=== PATIENT | male | born 1940 | race African-American/Black ===

== ENCOUNTER 2021-08-25 15:53 | Emergency (ER) | payer MEDICARE, MEDICAID ==
[~2021-08-25] VITALS: Ht 180.3 cm; Wt 60.0 kg
[2021-08-25 17:49] LABS: BASOPHILS % 1.5 % (0.0-2.0); EOSINOPHILS % 0.6 % (0.0-5.0); HEMOGLOBIN. 12.5 g/dL (14.0-18.0); LYMPHOCYTES % 42.9 % (20.0-50.0); MEAN CORPUSCULAR HEMOGLOBIN 30.3 pg (28.0-32.0); MEAN CORPUSCULAR VOLUME 89.9 fL (80.0-94.0); MEAN PLATELET VOLUME 7.7 fl (7.4-10.4); MONOCYTES % 14.2 % (2.0-8.0); NEUTROPHILS % 40.8 % (40.0-76.0); PLATELET 197 x1000/uL (130-400); RED BLOOD CELL COUNT 4.12 mill/uL (4.7-6.1)
[2021-08-25 17:53] LABS: CHLORIDE 107 mEq/L (98-107)
[2021-08-25 20:00] VITALS: BP 171/82
[2021-08-25 20:24] LABS: CLARITY URINE CLEAR (CLEAR); COLOR URINE YELLOW (YELLOW); KETONES URINE NEGATIVE (NEGATIVE); LEUKOCYTE ESTERASE URINE NEGATIVE (NEGATIVE); NITRITE URINE NEGATIVE (NEGATIVE); OCCULT BLOOD URINE NEGATIVE (NEGATIVE); PH URINE 5.5 (4.5-8.0); PROTEIN URINE NEGATIVE (NEGATIVE); SPECIFIC GRAVITY URINE 1.016 (1.005-1.030); UROBILINOGEN URINE 0.2 E.U./dL (0.2-1.0)
== END 2021-08-25 21:19 | disposition home or self-care (01) ==
LOC: ER 15:53
DX: R53.1 Weakness (principal); R42 Dizziness and giddiness; H54.7 Unspecified visual loss; Z91.81 History of falling
CPT/HCPCS: 36415; 71045; 80053; 81003; 82962; 85025; 93005; 99285

== ENCOUNTER 2021-12-31 01:55 | Inpatient (IN) | payer MEDICARE, MEDICAID ==
[~2021-12-31] VITALS: Ht 180.3 cm; Wt 59.0 kg
[2021-12-31] MEDS ORDERED: ACETAMINOPHEN 325MG TABLET PO STA (02:57)
[2021-12-31] MEDS ORDERED: CEFTRIAXONE 1 G PREMIX 50 ML IV NR (03:00)
[2021-12-31] MEDS ORDERED: SODIUM CHLORIDE 0.9% 1,000 ML IV ONE (03:00)
[2021-12-31 03:45] LABS: CLARITY URINE CLEAR (CLEAR); COLOR URINE YELLOW (YELLOW); KETONES URINE 1+ (NEGATIVE); LEUKOCYTE ESTERASE URINE NEGATIVE (NEGATIVE); NITRITE URINE NEGATIVE (NEGATIVE); OCCULT BLOOD URINE TRACE (NEGATIVE); PROTEIN URINE 1+ (NEGATIVE); SPECIFIC GRAVITY URINE 1.021 (1.005-1.030)
[2021-12-31] MEDS ORDERED: ENALAPRIL 2.5MG/2ML VIAL 2ML IV ONE (03:45)
[2021-12-31] MEDS ORDERED: ENALAPRIL 1.25MG/ML VIAL 1ML IV NR (03:45)
[2021-12-31 03:53] LABS: CHLORIDE 97 mEq/L (98-107); HEMATOCRIT. 40.1 % (42.0-52.0); HEMOGLOBIN. 13.7 g/dL (14.0-18.0); MEAN CORPUSCULAR HEMOGLOBIN 30.8 pg (28.0-32.0); MEAN CORPUSCULAR VOLUME 90.2 fL (80.0-94.0); MEAN PLATELET VOLUME 7.3 fl (7.4-10.4); PLATELET 223 x1000/uL (130-400); RED BLOOD CELL COUNT 4.45 mill/uL (4.7-6.1); RED CELL DISTRIBUTION WIDTH 14.1 % (11.6-14.6)
[2021-12-31 04:55] LABS: PLATELET ESTIMATE NORMAL
[2021-12-31] MEDS ORDERED: DOCUSATE SODIUM 100MG CAPSULE PO PRN (08:45)
[2021-12-31] MEDS ORDERED: ACETAMINOPHEN 325MG TABLET PO PRN (08:45)
[2021-12-31] MEDS ORDERED: IPRATROPIUM/ALBUTEROL 0.5-3(2.5)MG/3ML NEB HHN PRN (08:45)
[2021-12-31] MEDS ORDERED: ONDANSETRON HCL 4MG/2ML INJ IV PRN (08:45)
[2021-12-31] MEDS ORDERED: DIPHENHYDRAMINE 50MG/ML VIAL IV PRN (08:45)
[2021-12-31] MEDS ORDERED: GUAIFENESIN 200MG/10ML SUGAR FREE UDC PO PRN (08:45)
[2021-12-31] MEDS ORDERED: MAGNESIUM/ALUMINUM HYDROXIDE/SIMETHICONE 30ML UDC PO PRN (08:45)
[2021-12-31] MEDS ORDERED: MORPHINE SULFATE 2 MG/ML CPJ (NOT FOR IM USE) IV PRN (08:45)
[2021-12-31] MEDS ORDERED: NALOXONE HCL 0.4MG/ML VIAL IV PRN (08:45)
[2021-12-31] MEDS: CLONIDINE 0.1MG TABLET PO PRN (09:29)
[2021-12-31] MEDS: ENOXAPARIN 40MG/0.4ML SYR SUBCUT SCH (09:48)
[2021-12-31] MEDS: SODIUM CHLORIDE 0.9% 1,000 ML IV SCH (11:02)
[2021-12-31] MEDS: SODIUM CHLORIDE 0.9% INJ 3ML FLUSH IVF SCH ×2 (14:12→22:00)
[2021-12-31] MEDS ORDERED: METOPROLOL TARTRATE 25MG TABLET PO NR (18:15)
[2021-12-31] MEDS ORDERED: METOPROLOL TARTRATE 5MG/5ML VIAL IV ONE (19:15)
[2021-12-31 22:10] VITALS: BP 173/94
[2022-01-01] VITALS (8 sets, daily range): BP systolic 138–165; BP diastolic 63–87
[2022-01-01] MEDS ORDERED: CEFTRIAXONE 1,000 MG in DEXTROSE 5% WATER 50 ML IV SCH (06:00)
[2022-01-01] MEDS: SODIUM CHLORIDE 0.9% INJ 3ML FLUSH IVF SCH ×3 (06:00→20:49)
[2022-01-01] MEDS: ENOXAPARIN 40MG/0.4ML SYR SUBCUT SCH (09:00)
[2022-01-01] MEDS: SODIUM CHLORIDE 0.9% 1,000 ML IV SCH (09:00)
[2022-01-01 12:12] LABS: HEMATOCRIT. 35.5 % (42.0-52.0); HEMOGLOBIN. 12.1 g/dL (14.0-18.0); MEAN CORPUSCULAR HEMOGLOBIN 30.5 pg (28.0-32.0); MEAN CORPUSCULAR VOLUME 89.6 fL (80.0-94.0); MEAN PLATELET VOLUME 8.2 fl (7.4-10.4); PLATELET 198 x1000/uL (130-400); RED BLOOD CELL COUNT 3.96 mill/uL (4.7-6.1); RED CELL DISTRIBUTION WIDTH 14.4 % (11.6-14.6)
[2022-01-01 12:30] LABS: CHLORIDE 97 mEq/L (98-107)
[2022-01-01] MEDS: CEFTRIAXONE 1,000 MG in DEXTROSE 5% WATER 50 ML IV SCH (14:16)
[2022-01-01] MEDS: METOPROLOL TARTRATE 25MG TABLET PO SCH ×2 (14:16→20:48)
[2022-01-01 17:36] LABS: PLATELET ESTIMATE NORMAL
[2022-01-01] MEDS: HYDROCODONE/ACETAMINOPHEN 5/325MG TABLET PO PRN (19:06)
[2022-01-02] VITALS (12 sets, daily range): BP systolic 118–184; BP diastolic 68–94
[2022-01-02] MEDS: SODIUM CHLORIDE 0.9% INJ 3ML FLUSH IVF SCH ×3 (06:15→21:27)
[2022-01-02] MEDS: SODIUM CHLORIDE 0.9% 1,000 ML IV SCH (08:50)
[2022-01-02] MEDS: METOPROLOL TARTRATE 25MG TABLET PO SCH ×2 (08:51→20:18)
[2022-01-02] MEDS: ENOXAPARIN 40MG/0.4ML SYR SUBCUT SCH (08:51)
[2022-01-02] MEDS: HYDROCODONE/ACETAMINOPHEN 5/325MG TABLET PO PRN ×2 (08:52→20:16)
[2022-01-02] MEDS: TAMSULOSIN HCL 0.4MG SR CAPSULE PO SCH (12:09)
[2022-01-02 12:17] LABS: HEMATOCRIT. 31.4 % (42.0-52.0); HEMOGLOBIN. 11.2 g/dL (14.0-18.0); MEAN CORPUSCULAR HEMOGLOBIN 31.5 pg (28.0-32.0); MEAN PLATELET VOLUME 7.2 fl (7.4-10.4); PLATELET 182 x1000/uL (130-400); RED BLOOD CELL COUNT 3.56 mill/uL (4.7-6.1); RED CELL DISTRIBUTION WIDTH 13.9 % (11.6-14.6)
[2022-01-02 12:34] LABS: CHLORIDE 100 mEq/L (98-107)
[2022-01-02] MEDS: CEFTRIAXONE 1,000 MG in DEXTROSE 5% WATER 50 ML IV SCH (13:20)
[2022-01-03] VITALS (11 sets, daily range): BP systolic 132–185; BP diastolic 73–105
[2022-01-03] MEDS: HYDRALAZINE 20MG/ML VIAL IV PRN (04:27)
[2022-01-03] MEDS: SODIUM CHLORIDE 0.9% INJ 3ML FLUSH IVF SCH ×3 (05:59→21:08)
[2022-01-03] MEDS: ENOXAPARIN 40MG/0.4ML SYR SUBCUT SCH (09:17)
[2022-01-03] MEDS: METOPROLOL TARTRATE 25MG TABLET PO SCH ×2 (09:18→20:35)
[2022-01-03] MEDS: TAMSULOSIN HCL 0.4MG SR CAPSULE PO SCH (09:18)
[2022-01-03] MEDS: SODIUM CHLORIDE 0.9% 1,000 ML IV SCH ×2 (09:19→13:36)
[2022-01-03 14:28] LABS: PLATELET ESTIMATE NORMAL
[2022-01-03] MEDS: CEFTRIAXONE 1,000 MG in DEXTROSE 5% WATER 50 ML IV SCH (14:47)
[2022-01-03] MEDS ORDERED: POTASSIUM CHLORIDE 20MEQ TABLET SR PO NR (15:15)
[2022-01-03] MEDS: APIXABAN 5 MG TABLET PO SCH (17:12)
[2022-01-04] VITALS (17 sets, daily range): BP systolic 116–192; BP diastolic 58–129
[2022-01-04] MEDS: HYDRALAZINE 20MG/ML VIAL IV PRN (04:34)
[2022-01-04 05:59] LABS: CHLORIDE 99 mEq/L (98-107)
[2022-01-04] MEDS: SODIUM CHLORIDE 0.9% INJ 3ML FLUSH IVF SCH ×3 (06:00→21:42)
[2022-01-04 06:08] LABS: HEMATOCRIT. 36.4 % (42.0-52.0); HEMOGLOBIN. 12.5 g/dL (14.0-18.0); MEAN CORPUSCULAR HEMOGLOBIN 30.5 pg (28.0-32.0); MEAN CORPUSCULAR VOLUME 88.9 fL (80.0-94.0); MEAN PLATELET VOLUME 7.9 fl (7.4-10.4); PLATELET 234 x1000/uL (130-400); RED BLOOD CELL COUNT 4.09 mill/uL (4.7-6.1); RED CELL DISTRIBUTION WIDTH 13.9 % (11.6-14.6)
[2022-01-04] MEDS: TAMSULOSIN HCL 0.4MG SR CAPSULE PO SCH (08:57)
[2022-01-04] MEDS: METOPROLOL TARTRATE 25MG TABLET PO SCH ×2 (08:57→21:42)
[2022-01-04] MEDS: APIXABAN 5 MG TABLET PO SCH ×2 (08:58→18:28)
[2022-01-04] MEDS: CEFTRIAXONE 1,000 MG in DEXTROSE 5% WATER 50 ML IV SCH (13:45)
[2022-01-04 14:56] LABS: PLATELET ESTIMATE NORMAL
[2022-01-05] VITALS (11 sets, daily range): BP systolic 114–180; BP diastolic 70–87
[2022-01-05] MEDS: CLONIDINE 0.1MG TABLET PO PRN ×2 (00:45→08:39)
[2022-01-05] MEDS: HYDRALAZINE 20MG/ML VIAL IV PRN (01:06)
[2022-01-05] MEDS: SODIUM CHLORIDE 0.9% INJ 3ML FLUSH IVF SCH (05:06)
[2022-01-05] MEDS: METOPROLOL TARTRATE 25MG TABLET PO SCH (08:32)
[2022-01-05] MEDS: SODIUM CHLORIDE 0.9% 1,000 ML IV SCH (08:32)
[2022-01-05] MEDS: TAMSULOSIN HCL 0.4MG SR CAPSULE PO SCH (08:32)
[2022-01-05] MEDS: APIXABAN 5 MG TABLET PO SCH (08:32)
[2022-01-05] MEDS: HYDROCODONE/ACETAMINOPHEN 5/325MG TABLET PO PRN (08:39)
== END 2022-01-05 17:00 | disposition home or self-care (01) | DRG 641 ==
LOC: ER 01:55 → MICUSO 05:26 → 5EST 19:25
PROVIDERS: ADMIT Internal Medicine; ATTEND Internal Medicine
DX: E87.1 Hypo-osmolality and hyponatremia (principal); R33.9 Retention of urine, unspecified; E86.0 Dehydration; N20.0 Calculus of kidney; I10 Essential (primary) hypertension; I48.91 Unspecified atrial fibrillation; Z79.01 Long term (current) use of anticoagulants
CPT/HCPCS: 36415; 71045; 74176; 80048; 80053; 81003; 83605; 83880; 84484; 85025; 93005; 93306; 97162; 99285; J0360; J0696; J1650; J2270; J3490; J7030; J7060; A4315

== ENCOUNTER 2024-03-28 05:10 | Emergency (ER) | payer MEDICARE, MEDICAID ==
[~2024-03-28] VITALS: Ht 182.9 cm; Wt 86.0 kg
[2024-03-28 05:12] VITALS: O2SAT 94
[2024-03-28 06:37] LABS: CHLORIDE 101 mEq/L (98-107); POTASSIUM 3.7 mEq/L (3.5-5.1); SODIUM 129 mEq/L (136-145)
[2024-03-28 06:38] LABS: CALCIUM 9.6 mg/dL (8.7-10.4); CARBON DIOXIDE 22 mEq/L (21-32)
[2024-03-28 06:43] LABS: CREATININE 0.8 mg/dL (0.6-1.3); GLUCOSE 189 mg/dL (70-105); UREA NITROGEN BLOOD 15 mg/dL (9-23)
[2024-03-28 06:45] LABS: ALANINE AMINOTRANSFERASE 8 IU/L (10-49); ALBUMIN 4.6 g/dL (3.2-4.8); ASPARTATE AMINOTRANSFERASE 21 IU/L (<34); BILIRUBIN TOTAL 0.4 mg/dL (0.1-1.0); PROTEIN TOTAL 7.9 g/dL (6.0-8.3)
[2024-03-28 08:23] LABS: HEMATOCRIT. 33.6 % (42.0-52.0); HEMOGLOBIN. 11.3 g/dL (14.0-18.0); MEAN CORPUSCULAR HEMOGLOBIN 31.2 pg (28.0-32.0); MEAN CORPUSCULAR HGB CONC 33.5 g/dL (31.0-37.0); MEAN CORPUSCULAR VOLUME 93.2 fL (80.0-94.0); RED CELL DISTRIBUTION WIDTH 13.8 % (11.6-14.6); WHITE BLOOD COUNT 14.5 x1000/uL (4.5-11.0)
[2024-03-28 08:26] LABS: DIFFERENTIAL COMMENT 1
[2024-03-28 08:57] LABS: CLARITY URINE CLEAR (CLEAR); COLOR URINE YELLOW (YELLOW); GLUCOSE URINE NEGATIVE (NEGATIVE); KETONES URINE TRACE (NEGATIVE); LEUKOCYTE ESTERASE URINE NEGATIVE (NEGATIVE); NITRITE URINE NEGATIVE (NEGATIVE); OCCULT BLOOD URINE NEGATIVE (NEGATIVE); PH URINE 6.5 (4.5-8.0); PROTEIN URINE NEGATIVE (NEGATIVE); SPECIFIC GRAVITY URINE 1.011 (1.005-1.030); UROBILINOGEN URINE 0.2 E.U./dL (0.2-1.0)
[2024-03-28] MEDS ORDERED: POLY17PO3 MT (09:16)
[2024-03-28 09:38] VITALS: BP 132/62; PULSE 69; RESP 19; TEMP 37.11408; O2SAT 100
[2024-03-28 12:40] LABS: PLATELET 239 x1000/uL (130-400)
[2024-03-28 12:44] LABS: PLATELET ESTIMATE NORMAL
== END 2024-03-28 10:55 | disposition home or self-care (01) ==
LOC: ER 05:35
DX: R33.9 Retention of urine, unspecified (principal); I10 Essential (primary) hypertension
CPT/HCPCS: 36415; 51702; 80053; 81003; 85025; 99284